=== PATIENT | male | born 1980 | race Caucasian/White ===

== ENCOUNTER 2016-09-03 10:23 | Emergency (ER) | payer SELFPAY ==
[~2016-09-03] VITALS: Ht 188 cm; Wt 177.0 kg
[2016-09-03] MEDS ORDERED: ASPI-515 PO (10:44)
[2016-09-03] MEDS ORDERED: METO50TA82 PO (10:44)
[2016-09-03] MEDS ORDERED: MORPHINE SULFATE 4 MG/ML, 1ML IVPush PRN (11:00)
[2016-09-03] MEDS ORDERED: SODIUM CHLORIDE FLUSH 10ML SYR IVF ONE (11:00)
[2016-09-03] MEDS ORDERED: ASPIRIN 81 MG TABLET CHEW PO ONE (11:00)
[2016-09-03] MEDS ORDERED: MORPHINE SULFATE 4 MG/ML, 1ML ONE (11:29)
[2016-09-03] MEDS ORDERED: NITROGLYCERIN SINGLE TAB 0.4 MG SL ONE (11:29)
[2016-09-03] MEDS ORDERED: ASPIRIN 81 MG TABLET CHEW ONE ×2 (11:29→11:39)
[2016-09-03] MEDS: NITROGLYCERIN SINGLE TAB 0.4 MG SL PRN ×2 (11:33→11:38)
[2016-09-03 11:34] LABS: ASPARTATE AMINO TRANSFERASE 195 U/L (15-37); BLOOD UREA NITROGEN 11 mg/dL (7-18)
[2016-09-03 14:01] VITALS: BP 127/55
== END 2016-09-03 14:28 | disposition home or self-care (01) ==
LOC: ED 11:03
DX: R07.2 Precordial pain (principal); I10 Essential (primary) hypertension; R94.5 Abnormal results of liver function studies
CPT/HCPCS: 36415; 71010; 76700; 80053; 83690; 83880; 84484; 85025; 85379; 85610; 85730; 93005; 96374